=== PATIENT | male | born 1955 | race Caucasian/White ===

== ENCOUNTER 2023-07-22 06:33 | Outpatient (OUT) | payer MEDICARE, SELFPAY ==
[2023-07-22 07:14] LABS: Basophils Absolute Auto 0.1 10^3/uL (0.0-0.1); Basophils Percent Auto 1.5 % (0.2-2.0); Eosinophils Absolute Auto 0.3 10^3/uL (0.0-0.7); Eosinophils Percent Auto 4.8 % (0.9-7.0); Hematocrit 45.1 % (42.0-54.0); Hemoglobin 15.4 g/dL (14.0-18.0); Immature Granulocytes Abs Auto 0.01 10^3/uL (0.00-0.03); Immature Granulocytes Pct Auto 0.2 % (0.0-0.5); Lymphocytes Absolute Auto 2.4 10^3/uL (1.2-3.8); Lymphocytes Percent Auto 39.5 % (20.5-60.0); Mean Corpuscular HGB Conc 34.1 g/dL (29.9-35.2); Mean Corpuscular Volume 93.8 fL (80.0-94.0); Monocytes Absolute Auto 0.5 10^3/uL (0.3-0.8); Monocytes Percent Auto 8.4 % (1.7-12.0); Neutrophils Absolute Auto 2.7 10^3/uL (1.4-6.5); Neutrophils Percent Auto 45.6 % (43.0-75.0); Platelet Count 212 10^3/uL (150-450); Red Blood Count 4.81 10^6/uL (4.70-6.10); Red Cell Distribution Width 11.7 % (11.0-15.0)
[2023-07-22 08:29] LABS: Prostate Specific Antigen Scrn 1.46 ng/mL (<=4.00)
[2023-07-22 09:12] LABS: Alanine Aminotransferase 64 U/L (16-63); Anion Gap 10.5; BUN Creatinine Ratio 14.3; Calcium 9.4 mg/dL (8.5-10.1); Carbon Dioxide 29.7 mmol/L (21.0-32.0); Chloride 105 mmol/L (98-107); Chol HDL Ratio 3.1; Cholesterol 101 mg/dL (<=200); Estimated GFR (African America >60 (>=60); Estimated GFR (Non-African Ame >60 (>=60); Glucose 103 mg/dL (74-106); HDL Cholesterol 33 mg/dL (40-60); Potassium 4.2 mmol/L (3.5-5.1); Sodium 141 mmol/L (136-145); Triglycerides 63 mg/dL (<=150); VLDL CHOLESTEROL 12.6 mg/dL
== END 2023-07-22 06:34 | disposition home or self-care (01) ==
LOC: LAB 06:33
PROVIDERS: PCP Internal Medicine; Visit Provider Internal Medicine
DX: I25.10 Atherosclerotic heart disease of native coronary artery without angina pectoris (principal); E78.00 Pure hypercholesterolemia, unspecified; Z79.899 Other long term (current) drug therapy; Z12.5 Encounter for screening for malignant neoplasm of prostate
CPT/HCPCS: 36415; 80048; 80061; 84460; 85025; G0103

== ENCOUNTER 2023-08-24 14:30 | Outpatient (OUT) | payer MEDICARE, SELFPAY ==
--- NOTE | 2023-08-24 | ECG_ITS ---
The [facility] Test Date: 2023-08-24 Pat Name: DEMETRIUS NIELSON Department: Room: - Gender: Male [employer]ist: : [id number] Requested By: BUDDY BRUNSON Order Number: [id number] Reading MD: BUDDY BRUNSON Measurements Intervals [place] Rate: 82 P: 69 DC: 159 QRS: 53 QRSD: 88 T: 70 QT: 373 QTc: 436 Interpretive Statements SINUS RHYTHM No previous ECG available for comparison Electronically Signed On 08-25-2023 7:16:10 EST by BUDDY BRUNSON
--- NOTE | 2023-08-24 14:46 | XR_ITS ---
The [address] [address] Patient Name: DEMETRIUS NIELSON MRN: [id number] date: 1955 Sex: M Assigned Patient Location: LAB Current Patient Location: Accession/Order Number: [id number] Exam Date: 08/24/2023 14:50 Report Date: 08/25/2023 07:26 At the request of: BUDDY BRUNSON Procedure: XR chest 2V PROCEDURE: XR chest 2V DATE: 08/24/2023 1:50 PM [facility] COMPARISONS: None. CLINICAL INDICATION: 68 years Male Precordial Chest Pain R07.2 FINDINGS: The cardiomediastinal silhouette and pulmonary vasculature are within normal limits. Poststernotomy changes are identified. The lungs are clear. There is no evidence of pleural effusion or pneumothorax. XR/XR chest 2V IMPRESSION: Chest radiograph is essentially within normal limits. Poststernotomy changes are identified. Electronically authenticated by: MATILDE DOTY Date: 08/25/2023 07:26
[2023-08-24 15:09] LABS: Basophils Absolute Auto 0.1 10^3/uL (0.0-0.1); Basophils Percent Auto 1.6 % (0.2-2.0); Eosinophils Absolute Auto 0.1 10^3/uL (0.0-0.7); Eosinophils Percent Auto 1.4 % (0.9-7.0); Hematocrit 44.4 % (42.0-54.0); Hemoglobin 15.2 g/dL (14.0-18.0); Immature Granulocytes Abs Auto 0.01 10^3/uL (0.00-0.03); Immature Granulocytes Pct Auto 0.2 % (0.0-0.5); Lymphocytes Absolute Auto 1.8 10^3/uL (1.2-3.8); Mean Corpuscular HGB Conc 34.2 g/dL (29.9-35.2); Mean Corpuscular Hemoglobin 32.1 pg (25.9-34.0); Mean Corpuscular Volume 93.7 fL (80.0-94.0); Mean Platelet Volume 11.6 fL (9.5-13.5); Monocytes Absolute Auto 0.4 10^3/uL (0.3-0.8); Monocytes Percent Auto 7.1 % (1.7-12.0); Neutrophils Absolute Auto 3.4 10^3/uL (1.4-6.5); Neutrophils Percent Auto 58.7 % (43.0-75.0); Platelet Count 202 10^3/uL (150-450); Red Blood Count 4.74 10^6/uL (4.70-6.10); Red Cell Distribution Width 11.7 % (11.0-15.0); White Blood Count 5.7 10^3/uL (4.0-11.0)
[2023-08-24 15:30] LABS: BUN Creatinine Ratio 12.4; Carbon Dioxide 27.4 mmol/L (21.0-32.0); Chloride 107 mmol/L (98-107); Estimated GFR (African America >60 (>=60); Estimated GFR (Non-African Ame >60 (>=60); Glucose 103 mg/dL (74-106); Potassium 4.4 mmol/L (3.5-5.1); Sodium 144 mmol/L (136-145); Troponin I High Sensitivity 4.5 pg/mL (4.0-76.1)
== END 2023-08-24 14:31 | disposition home or self-care (01) ==
LOC: LAB 14:32
PROVIDERS: PCP Internal Medicine; Visit Provider Internal Medicine
DX: R07.2 Precordial pain (principal); I25.10 Atherosclerotic heart disease of native coronary artery without angina pectoris; R03.0 Elevated blood-pressure reading, without diagnosis of hypertension
CPT/HCPCS: 36415; 71046; 80048; 84484; 85025; 93005

== ENCOUNTER 2023-11-03 08:33 | Outpatient (OUT) | payer MEDICARE, SELFPAY ==
--- OUTSIDE RECORDS SUMMARY | 2023-11-03 08:38 | XMS_ITS | CCD ---
Author Name Unknown Address [address] [place] [address] Organization [facility] Team Providers Care Production Expediter Name Role Phone PHYSICIAN, DEFAULT Unavailable Unavailable PHYSICIAN, DEFAULT Unavailable Unavailable REQUEST, DR KP LISTED Admitting Unavaila ble REQUEST, DR GOODRICH LISTED Attending Unavaila ble BALL, DR GOODWIN Primary Care Unavailable REQUEST, DR GOODRICH LISTED Consulting Unavaila ble BALL, DR GOODWIN Admitting Unavailable BALL, DR GOODWIN Attending Unavailable BALL, DR GOODWIN Primary Care Unavailable BALL, DR GOODWIN Consulting Unavailable BALL, DR GOODWIN Admitting Unavailable BALL, DR GOODWIN Attending Unavailable BALL, DR GOODWIN Primary Care Unavailable Rojelio Adler Unavailable Arnel Buckley Unavailable Rojelio Adler DO Primary Care Provider NAOMIE DENNIS Attending Unavailable ROJELIO ADLER Referring Unavailable VITOR, ROJELIO Mayen Primary Care Unavailable JESSICA CUNHA Attending Unavailable JESSICA CUNHA Referring Unavailable VITOR, ROJELIO Mayen Primary Care Unavailable MARIVEL MUSTAFA Admitting Unavailable MORIAH SANTOS Attending Unavailable ROJELIO ADLER Primary Care Unavailable NAOMIE DENNIS Consulting Unavailable NESTOR OWENS Attending Unavailable NESTOR OWENS Referring Unavailable ROJELIO ADLER Primary Care Unavailable TYREE PRABHAKAR Attending Unavailable TYREE PRABHAKAR Referring Unavailable ROJELIO ADLER Primary Care Unavailable TYREE PRABHAKAR Attending Unavailable TYREE PRABHAKAR Referring Unavailable ROJELIO ADLER Primary Care Unavailable TYREE PRABHAKAR Attending Unavailable TYREE PRABHAKAR Referring Unavailable VITOR, ROJELIO E Primary Care Unavailable TYREE PRABHAKAR Attending Unavailable TYREE PRABHAKAR Referring Unavailable VITOR, ROJELIO E Primary Care Unavailable TYREE PRABHAKAR Attending Unavailable TYREE PRABHAKAR Referring Unavailable BALL, ROJELIO E Primary Care Unavailable MALASPATTIEM Attending Unavailable MALAS HAZEM Referring Unavailable VITOR, ROJELIO E Primary Care Unavailable Medications Current Medications Medication Drug Class(es) Dates Sig (Normalized) Sig (Original) acetaminophen 500 mg oral tablet (2 sources) take 2 tablets by mouth every six hours as needed for pain acetaminophen (TYLENOL) 500 mg tablet Take 2 tablets (1,000 mg total) by mouth every 6 (six) hours as needed for pain. 0 Active Aspir-81 (7 sources) Aspir-81 Active aspirin 81 mg delayed release oral tablet (2 sources) Platelet Aggregation Inhibitor, Nonsteroidal Anti-inflammatory Drug take 1 tablet by mouth in the morning aspirin 81 mg Take 1 tablet (81 mg total) by mouth in the morning. Patient just started 81 mg on 09/09/2017 was previously on 324 mg. 0 Active atorvastatin 40 mg oral tablet (9 sources) HMG-CoA Reductase Inhibitor Start: 02-11-2018 take 1 tablet by mouth once daily atorvastatin (LIPITOR) 40 mg tablet Take 1 tablet (40 mg total) by mouth daily. 90 tablet 3 02/11/2018 Active B12 5000 MCG (4 sources) B12 5000 MCG 2 tabelts Sublingual three times a week Active 24 hr isosorbide mononitrate 30 mg extended release oral tablet (4 sources) Nitrate Vasodilator Start: 09-15-2023 End: 10-09-2023 take 1 tablet by mouth once daily isosorbide mononitrate (IMDUR) 30 mg 24 hr tablet Take 1 tablet (30 mg total) by mouth daily. 90 tablet 3 10/09/2023 Active take 1 tablet by donal th every twelve hours Isosorbide Mononitrate 20 MG 1 tablet Or ally Twice a day Active 24 hr metoprolol succinate 50 mg extended release oral tablet (6 sources) beta-Adrenergic Ok Start: 09-15-2023 End: 10-09-2023 take 1 tablet by mouth every twenty-four hours in the morning metoprolol succinate XL (TOPROL XL) 50 mg 24 hr tablet Take 1 tablet (50 mg total) by mouth in the morning. 90 tablet 3 10/09/2023 Active take 1 tablet by mouth once joey y Metoprolol Succinate ER 50 MG 1 tablet Orally Once a day for 30 days Active take 1 tablet by donal th every twenty-four hours Metoprolol Succinate ER 25 MG 1 tablet Orally Once a day for 30 days Active nitroglycerin 0.4 mg sublingual tablet (5 sources) Nitrate Vasodilator Start: 08-24-2023 Nitroglyce rin 0.4 MG as directed Sublingual PRN chest pain for 30 days Jul, Active Start: 08-24-2023 nitroglycerin (NITROSTAT) 0.[address] 1 tablet (0.4 mg total) under the tongue every 5 (five) minutes as needed. 0 08/24/2023 Active predniSONE 20 mg oral tablet (1 source) Start: 10-26-2023 predniSONE 20 MG 1 tablet Orally bid w/ food x 3 days then qd w/ food x 3 days for 6 days Sep, Active vitamin b12 1 mg sublingual tablet (2 sources) Vitamin B12 take 1 tablet under the tongue three times weekly cyanocobalamin (VITAMIN B12) 1,000 mcg tablet, sublingual Place 1 tablet (1,000 mcg total) under the tongue 3 (three) times a week. 0 Active Problems Active Problems Problem Classification Problem Date Documented Da te Episodic/Chronic Coronary atherosclerosis and other heart disease (18 sources) Coronary arteriosclerosis; Translations: [Atherosclerotic heart disease of [place] coronary artery without angina pectoris] Onset: 09-09-2017 Chronic Disorders of lipid metabolism (11 sources) Hypercholesterolemia ; Translations: [Pure hypercholesterolemia , unspecified] Onset: 10-07-2017 Chronic Esophageal disorders (8 sources) Gastro-esophageal reflux disease with esophagitis; Translations: [Gastro-esophageal reflux disease with esophagitis, without bleeding] Chronic Essential hypertension (3 sources) Hypertensive disorder; Translations: [Essential (primary) hypertension] Onset: 09-24-2023 09-24-2023 Chronic Nonspecific chest pain (11 sources) Precordial pain; Translations: [Chest discomfort] Onset: 09-09-2017 Episodic Occlusion or stenosis of precerebral arteries (5 sources) Carotid atherosclerosis; Translations: [Occlusion and stenosis of unspecified carotid artery] Onset: 12-21-2018 09-24-2023 Chronic Osteoarthritis (2 sources) Osteoarthritis of joint of left shoulder region; Translations: [Primary osteoarthritis, left shoulder] Chronic Other aftercare (4 sources) Long-term current use of drug therapy; 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] Episodic Other aftercare (1 source) Other usp (current) drug therapy Episodic Other circulatory disease (1 source) Elevated blood-pressure reading, without diagnosis of hypertension Episodic Other injuries and conditions due to external causes (4 sources) History of fall; Translations: [History of falling] Episodic Other nutritional; endocrine; and metabolic disorders (4 sources) Overweight; Translations: [Overweight] Episodic Other skin disorders (11 sources) Folliculitis; Translations: [Follicular disorder, unspecified] Episodic Other skin disorders (1 source) Actinic keratosis Episodic Other upper respiratory infections (4 sources) Streptococcal sore throat; Translations: [Streptococcal pharyngitis] Episodic Spondylosis; intervertebral disc disorders; other back problems (2 sources) Cervical spondylosis; Translations: [Spondylosis without myelopathy or radiculopathy, cervical region] Chronic Thyroid disorders (2 sources) Thyroid nodule; Translations: [Nontoxic single thyroid nodule] Onset: 09-30-2017 09-30-2017 Chronic Unclassified (1 source) Med Refill Onset: 09-24-2023 Past or Other Problems Problem Classification Problem Date Documented Da te Episodic/Chronic Esophageal disorders (1 source) Esophageal disorders Lymphadenitis (2 sources) Lymphadenopathy; Translations: [Generalized enlarged lymph nodes] Onset: 09-30-2017 09-30-2017 Episodic Other lower respiratory disease (2 sources) Dyspnea; Translations: [Shortness of breath] Onset: 01-20-2018 01-20-2018 Episodic Other screening for suspected conditions (not mental disorders or infectious disease) (7 sources) Encounter for screening for malignant neoplasm of prostate; Translations: [Cardiovascular stress test abnormal] Onset: 09-09-2017 Episodic Residual codes; unclassified (2 sources) FH: premature coronary heart disease; Translations: [Family history of ischemic heart disease and other diseases of the circulatory system] Onset: 09-09-2017 09-09-2017 Episodic Results Test Name Value Interpretation Reference Range Facil ity Outside Recordson 09-18-2023 Outside Records [id number] #[id number] Normal [facility] Basic Metabolic Panelon 07-30 Anion gap [Moles/Vol] 14.0 mmol/L [facility] Other Calcium [Mass/Vol] 9.3801650 mg/dL Normal 8.5-10.1 mg/ dL [facility] Other Chloride [Moles/Vol] 107 mmol/L Normal 98-107 mmol/L [facility] Other CO2 [Moles/Vol] 27.33720489 mmol/L Normal 21.0-3 2.0 mmol/L [facility] Other Creatinine [Mass/Vol] 0.94207828 mg/dL Normal 0.70-1.30 mg/dL [facility] Other Glucose [Mass/Vol] 103 mg/dL Normal 74-106 mg/dL [facility] Other Potassium [Moles/Vol] 4.15714237 mmol/L Normal 3.5-5.1 mmol/L [facility] Other Sodium [Moles/Vol] 144 mmol/L Normal 136-145 mmol/L [facility] Other Urea nitrogen [Mass/Vol] 12.8050487 mg/dL Normal 7.0-18.0 mg/dL [facility] Other Urea nitrogen/Creatinin e [Mass ratio] 12.4 mg/mg [facility] Other Basic Metabolic Panel see note [facility] Other Basic Metabolic Panel >60 >=60 [facility] Other CBC AUTO DIFFon 07-11-2022 BASO # 0.1 103/ul Normal 0.0-0.1 [facility] Comment on above: Performed By: #### D ATCBC #### [facility] [address] [place] [address] Dr. Veronica Valderrama Basophils/100 WBC (Bld) 1.3 % Normal 0.2-2.0 [facility] Comment on above: Performed By: #### D ATCBC #### [facility] [address] [place] [address] Dr. Veronica Valderrama EO # 0.2 103/ul Normal 0.0-0.7 [facility] Comment on above: Performed By: #### D ATCBC #### [facility] [address] [place] [address] Dr. Veronica Valderrama Eosinophils/100 WBC (Bld) 3.8 % Normal 0.9-7.0 [facility] Comment on above: Performed By: #### D ATCBC #### [facility] [address] [place] [address] Dr. Veronica Valderrama Erythrocyte distribution width (RBC) [Ratio] 12.0 % Normal 11.0-15.0 [facility] Comment on above: Performed By: #### D ATCBC #### [facility] [address] [place] [address] Dr. Veronica Valderrama Hematocrit (Bld) [Volume fraction] 45.4 % Normal 42.0-54.0 [facility] Comment on above: Performed By: #### D ATCBC #### [facility] [address] [place] [address] Dr. Veronica Valderrama Hemoglobin (Bld) [Mass/Vol] 15.3 g/dL Normal 14.0-18.0 [facility] Comment on above: Performed By: #### D ATCBC #### [facility] [address] [place] [address] Dr. Veronica Valderrama IG # 0.01 10e3/ul Normal 0.00-0.03 [facility] Comment on above: Performed By: #### D ATCBC #### [facility] [address] [place] [address] Dr. Veronica Valderrama IG % 0.2 % Normal 0.0-0.5 [facility] Comment on above: Performed By: #### D ATCBC #### [facility] [address] [place] [address] Dr. Veronica Valderrama LYMPH # 2.4 103/ul Normal 1.2-3.8 [facility] Comment on above: Performed By: #### D ATCBC #### [facility] [address] [place] [address] Dr. Veronica Valderrama Lymphocytes/100 WBC (Bld) 38.0 % Normal 20.5-60.0 [facility] Comment on above: Performed By: #### D ATCBC #### [facility] [address] [address] [address] Veronica Valderrama MCH (RBC) [Entitic mass] 31.5 pg Normal 25.9-34.0 [facility] Comment on above: Performed By: #### D ATCBC #### [facility] [address] [place] [address] Dr. Veronica Valderrama MCHC (RBC) [Mass/Vol] 33.7 g/dL Normal 29.9-35.2 [facility] Comment on above: Performed By: #### D ATCBC #### [facility] [address] [place] [address] Dr. Veronica Valderrama MCV (RBC) [Entitic vol] 93.4 fL Normal 80.0-94.0 [facility] Comment on above: Performed By: #### D ATCBC #### [facility] [address] [place] [address] Dr. Veronica Valderrama MONO # 0.6 103/ul Normal 0.3-0.8 [facility] Comment on above: Performed By: #### D ATCBC #### [facility] [address] [place] [address] Dr. Veronica Valderrama Monocytes/100 WBC (Bld) 8.8 % Normal 1.7-12.0 [facility] Comment on above: Performed By: #### D ATCBC #### [facility] [address] [place] [address] Dr. Veronica Valderrama NEUT # 3.1 103/ul Normal 1.4-6.5 [facility] Comment on above: Performed By: #### D ATCBC #### [facility] [address] [place] [address] Dr. Veronica Valderrama Neutrophils/100 WBC (Bld) 47.9 % Normal 43.0-75.0 [facility] Comment on above: Performed By: #### D ATCBC #### [facility] [address] [place] [address] Dr. Veronica Valderrama Platelet mean volume (Bld) [Entitic vol] 11.6 fL Normal 9.5-13.5 [facility] Comment on above: Performed By: #### D ATCBC #### [facility] [address] [address] [address] Veronica Valderrama PLT 213 103/ul Normal 150-450 [facility] Comment on above: Performed By: #### D ATCBC #### [facility] [address] [address] [address] Veronica Valderrama RBC 4.86 106/ul Normal 4.70-6.10 [facility] Comment on above: Performed By: #### D ATCBC #### [facility] [address] [address] [address] Veronica Valderrama WBC 6.4 103/ul Normal 4.0-11.0 [facility] Comment on above: Performed By: #### D ATCBC #### [facility] [address] [place] [address] Dr. Veronica Valderrama YANIV- BMP WITH LIPIDon 2021 Anion gap [Moles/Vol] 9.2 mmol/L Normal [facility] Comment on above: Performed By: #### D ATBMP #### [facility] [address] [place] [address] Dr. Veronica Valderrama Calcium [Mass/Vol] 9.2 mg/dL Normal 8.5-10.1 [facility] Comment on above: Performed By: #### D ATBMP #### [facility] [address] [place] [address] Dr. Veronica Valderrama Chloride [Moles/Vol] 107 mmol/L Normal 98-107 [facility] Comment on above: Performed By: #### D ATBMP #### [facility] [address] [place] [address] Dr. Veronica Valderrama Cholesterol [Mass/Vol] 110 mg/dL Normal <=200 [facility] Comment on above: Performed By: #### D ATBMP #### [facility] [address] [place] [address] Dr. Veronica Valderrama Cholesterol in HDL [Mass/Vol] 40 mg/dL Normal 40-60 [facility] Comment on above: Performed By: #### D ATBMP #### [facility] [address] [address] [address] Veronica Valderrama Cholesterol in LDL [Mass/Vol] 50.8 mg/dL Normal [facility] Comment on above: Performed By: #### D ATBMP #### [facility] [address] [address] [address] Veronica Valderrama CO2 [Moles/Vol] 29.5 mmol/L Normal 21.0-32.0 [facility] Comment on above: Performed By: #### D ATBMP #### [facility] [address] [address] [address] Veronica Valderrama Creatinine [Mass/Vol] 0.89 mg/dL Normal 0.70-1.30 [facility] Comment on above: Performed By: #### D ATBMP #### [facility] [address] [address] [address] Veronica Valderrama EGFR-AF [place] >60 Normal >=60 [facility] Comment on above: Performed By: #### D ATBMP #### [facility] [address] [address] [address] Veronica Valderrama EGFR-NON AF [place] >60 Normal >=60 [facility] Comment on above: Performed By: #### D ATBMP #### [facility] [address] [address] [address] Veronica Valderrama Glucose [Mass/Vol] 102 mg/dL Normal 74-106 [facility] Comment on above: Performed By: #### D ATBMP #### [facility] [address] [address] [address] Veronica Valderrama HDL NORMAL > or = 60 mg/dl - LOW CARDIOVASCULAR RISK <40 mg/dl - HIGH CARDIOVASCULAR RISK Normal [facility] Comment on above: Performed By: #### D ATBMP #### [facility] [address] [address] [address] Veronica Valderrama LDL CALC NORMAL SEE BELOW Normal [facility] Comment on above: Result Comment: <100 mg/dl OPTIMAL 100 - 129 mg/dl NEAR OR ABOVE OPTIMAL 130 - 159 mg/dl BORDERLINE HIGH 160 - 189 mg/dl HIGH >190 mg/dl VERY HIGH Performed By: #### D ATBMP #### [facility] [address] [address] [address] Veronica Valderrama Potassium [Moles/Vol] 3.7 mmol/L Normal 3.5-5.1 [facility] Comment on above: Performed By: #### D ATBMP #### [facility] [address] [address] [address] Veronica Valderrama Sodium [Moles/Vol] 142 mmol/L Normal 136-145 [facility] Comment on above: Performed By: #### D ATBMP #### [facility] [address] [address] [address] Veronica Valderrama Triglyceride [Mass/Vol] 96 mg/dL Normal <=150 [facility] Comment on above: Performed By: #### D ATBMP #### [facility] [address] [address] [address] Veronica Valderrama Urea nitrogen [Mass/Vol] 9.0 mg/dL Normal 7.0-18.0 [facility] Comment on above: Performed By: #### D ATBMP #### [facility] [address] [address] [address] Veronica Valderrama Urea nitrogen/Creatinin e [Mass ratio] 10.1 mg/mg Normal [facility] Comment on above: Performed By: #### D ATBMP #### [facility] [address] [address] [address] Veronica Valderrama VLDL CALC 19.2 mg/dL Normal [facility] Comment on above: Performed By: #### D ATBMP #### [facility] [address] [address] [address] Veronica Valderrama Physician Orderon 09-18-2020 Physician Order [id number] 0#1.00CD:127 Normal [facility] Coding Summary.on 09-17-2020 Coding Summary. CODING DATE: 09/17/2020 FINAL [facility] STATUS: Home (Routine DC) PAYOR: [facility] [place] ADMIT DX: REASON FOR VISIT DX: Z00.00 Encounter for general adult medical examination without abnormal findings FINAL DX: PRINCIPAL: Z00.00 Encounter for general adult medical examination without abnormal findings SECONDARY: PYMT PROC APC STAT DESCRIPTION DOCTOR NAME DATE NOTE: The code number assigned matches the documented diagnosis and / or procedure in the patient's chart. However, the narrative phrase printed from the coding software may appear abbreviated, or result in slightly different terminology. Coded By: Quiana Kiser Date Saved: 09/17/2020 09:24 am Normal [facility] Coding Summary. CODING DATE: 09/01/2020 FINAL [facility] STATUS: Home (Routine DC) PAYOR: [facility] [place] ADMIT DX: REASON FOR VISIT DX: E78.5 Hyperlipidemia, unspecified FINAL DX: PRINCIPAL: E78.5 Hyperlipidemia, unspecified SECONDARY: PYMT PROC APC STAT DESCRIPTION DOCTOR NAME DATE NOTE: The code number assigned matches the documented diagnosis and / or procedure in the patient's chart. However, the narrative phrase printed from the coding software may appear abbreviated, or result in slightly different terminology. Coded By: Magalys Watson Date Saved: 09/01/2020 07:59 am Normal [facility] Caesar 08-17-2020 ALT No additional P-5'-P [Catalytic activity/Vol] 23 Int._Unit/L Normal 6-46 [facility] Comment on above: Performed By: #### 2 [id number], [id number], [id number] #### [facility] [address] [place] [address] Massiel 08-17-2020 AST [Catalytic activity/Vol] 21 Int._Unit/L Normal 5-43 [facility] Comment on above: Performed By: #### 2 [id number], [id number], [id number] #### [facility] [address] [place] [address] Consent for Treatmenton 07-30 Consent for Treatment [id number] #1.00CD:127 Normal [facility] Lipid Panelon 08-17-2020 Cholesterol [Mass/Vol] 100 mg/dL Low 120-200 [facility] Comment on above: Performed By: #### 2 [id number], [id number], [id number] #### [facility] [address] [place] [address] Cholesterol in HDL [Mass/Vol] 33 mg/dL [facility] Comment on above: Result Comment: HDL > or equal to 60 mg/dL: Low cardiovascular risk HDL < 40 mg/dL : High cardiovascular risk Performed By: #### 2 [id number], [id number], [id number] #### [facility] [address] [place] [address] Cholesterol in LDL [Mass/Vol] 51 mg/dL Normal <=129 [facility] Comment on above: Performed By: #### 2 [id number], [id number], [id number] #### [facility] [address] [place] [address] Cholesterol in VLDL [Mass/Vol] 18 mg/dL Normal 7-40 [facility] Comment on above: Performed By: #### 2 [id number], [id number], [id number] #### [facility] [address] [place] [address] Triglyceride [Mass/Vol] 92 mg/dL Normal <=149 [facility] Comment on above: Performed By: #### 2 [id number], [id number], [id number] #### [facility] [address] [place] [address] Physician Orderon 08-17-2020 Physician Order [id number] 9#1.00CD:127 Normal [facility] Vital Signs Date Time Vital Sign Value Performing Clinician Facility 10-26-2023 11:30-0500 Body height 182.88 cm Rojelio Adler Other [facility] Other 10-26-2023 11:30-0500 Body mass index (BMI) [Ratio] 25.06 kg/m2 Rojelio Adler Other [facility] Other 10-26-2023 11:30-0500 Body weight 83.83 kg Rojelio Adler Other [facility] Other 10-26-2023 11:30-0500 Diastolic blood pressure 99 mm[Hg] Rojelio Ball Other [facility] Other 10-26-2023 11:30-0500 Respiratory rate 12 /min Rojelio Ball Other [facility] Other 10-26-2023 11:30-0500 Systolic blood pressure 154 mm[Hg] Rojelio Ball Other [facility] Other 09-24-2023 07:53-0500 Body height 182.9 cm Naomie Dennis MD Work Phone: [employer] 09-24-2023 07:53-0500 Body mass index (BMI) [Ratio] 25.33 kg/m2 Naomie Dennis MD Work Phone: [employer] 09-24-2023 07:53-0500 Body weight 84.73 kg Naomie Dennis MD Work Phone: [employer] 09-24-2023 07:53-0500 Diastolic blood pressure 70 mm[Hg] Naomie Denins MD Work Phone: [employer] 09-24-2023 07:53-0500 Heart rate 79 /min Naomie Dennis MD Work Phone: [employer] 09-24-2023 07:53-0500 SaO2% (BldA) [Mass fraction] 98 % Naomie Dennis MD Work Phone: [employer] 09-24-2023 07:53-0500 Systolic blood pressure 112 mm[Hg] Naomie Dennis MD Work Phone: [employer] 08-24-2023 13:30-0500 Body height 182.88 cm Rojelio Ball Other [facility] Other 08-24-2023 13:30-0500 Body mass index (BMI) [Ratio] 25.2 kg/m2 Rojelio Ball Other [facility] Other 08-24-2023 13:30-0500 Body weight 84.28 kg Rojelio Ball Other [facility] Other 08-24-2023 13:30-0500 Diastolic blood pressure 91 mm[Hg] Rojelio Ball Other [facility] Other 08-24-2023 13:30-0500 Respiratory rate 12 /min Rojelio Ball Other [facility] Other 08-24-2023 13:30-0500 Systolic blood pressure 156 mm[Hg] Rojelio Ball Other [facility] Other 07-21-2023 11:00-0400 Body height 182.88 cm Rojelio Ball Other [facility] Other 07-21-2023 11:00-0400 Body mass index (BMI) [Ratio] 25.01 kg/m2 Rojelio Ball Other [facility] Other 07-21-2023 11:00-0400 Body weight 83.64 kg Rojelio Ball Other [facility] Other 07-21-2023 11:00-0400 Diastolic blood pressure 74 mm[Hg] Rojelio Ball Other [facility] Other 07-21-2023 11:00-0400 Respiratory rate 12 /min Rojelio Ball Other [facility] Other 07-21-2023 11:00-0400 Systolic blood pressure 128 mm[Hg] Rojelio Ball Other [facility] Other 01-07-2023 14:30-0400 Body height 182.88 cm Rojelio Adler Other [facility] Other 01-07-2023 14:30-0400 Body mass index (BMI) [Ratio] 25.63 kg/m2 Rojelio Adler Other [facility] Other 01-07-2023 14:30-0400 Body weight 85.73 kg Rojelio Adler Other [facility] Other 01-07-2023 14:30-0400 Diastolic blood pressure 80 mm[Hg] Rojelio Adler Other [facility] Other 01-07-2023 14:30-0400 Systolic blood pressure 150 mm[Hg] Rojelio R&V Other [facility] Other Encounters Encounter Date Encounter Type Care Provider Facility Start: 10-26-2023 End: 10-26-2023 ambulatory Rojelio Adler Other [facility] Other Start: 10-26-2023 Office outpatient vi sit 15 minutes Rojelio Adler [facility] Start: 10-09-2023 Refill Yuko Riggs RN [facility] Comment on above: Med Refill Start: 09-30-2023 End: 10-29-2023 ambulatory [facility] Start: 09-24-2023 End: 09-24-2023 ambulatory [facility] Start: 09-24-2023 End: 09-24-2023 Office outpatient visit 15 minutes Naomie Dennis MD Work Phone: [facility] Comment on above: Chest discomfort (Pr imary Dx); Hx of CABG; Hypertension, unspecified type; Carotid atherosclerosis, unspecified laterality Start: 09-22-2023 End: 09-28-2023 ambulatory [facility] Start: 09-14-2023 End: 09-15-2023 ambulatory TYREE PRABHAKAR [facility] Start: 09-14-2023 End: 09-15-2023 ambulatory TYREE PRABHAKAR [facility] Start: 09-13-2023 End: 09-15-2023 Emergency department patient visit NESTOR OWENS [facility] Start: 09-13-2023 End: 09-14-2023 ambulatory MARIVEL MUSTAFA [facility] Start: 08-24-2023 End: 08-24-2023 ambulatory Rojelio Adler Other [facility] Other Start: 08-24-2023 Office outpatient vi sit 15 minutes Rojelio Adler [facility] Start: 08-24-2023 Telephone encounter Rojelio Adler [facility] Start: 07-21-2023 End: 07-21-2023 ambulatory Rojelio Adler Other [facility] Other Start: 07-21-2023 Patient encounter procedure Rojelio Adler [facility] Start: 01-08-2023 End: 01-08-2023 ambulatory Arnel Buckley Other [facility] Other Start: 01-08-2023 Encounter by kathy Buckley [facility] Start: 01-07-2023 End: 01-07-2023 ambulatory Rojelio Adler Other [facility] Other Start: 01-07-2023 Patient encounter procedure Rojelio Adler [facility] Start: 09-25-2022 Adult health examination Rojelio Adler Other [facility] Other Start: 07-17-2022 End: 07-18-[address] ROJELIO ADLER Facility:[facility] Start: 07-11-2022 End: 07-12-2022 ambulatory NONE LISTED REQUEST Facility:[facility] Start: 09-23-2017 End: 09-24-2017 Ambulatory DEFAULT PHYSICIAN Facility:[facility] Procedures Date Procedure Procedure Detail Performing Clinician Start: 09-24-2023 Follow-up visit Follow-up BITA DENNIS Start: 07-17-[address] KP Brown ISTED REQUEST Comment on above: Performed By: #### P [facility] #### [facility] [address] [address] [address] Veronica Valderrama Start: 10-07-2017 History of coronary artery bypass grafting Hx of CABG Naomie Dennis MD Work Phone: Depression screening Maikel Adler Other History of coronary artery bypass grafting Hx of CABG Naomie Dennis MD Work Phone: Screening for malign ant neoplasm of prostate Rojelio Adler Other Plan of Treatment Date Care Activity Detail Author Start: 09-24-2024 Adult BMI Screening Adult BMI Screening [facility] Start: 09-24-2024 Tobacco Screening Tobacco Screening [facility] Start: 11-19-2023 End: 11-19-2023 Patient encounter procedure 11/19/2023 8:30 AM EST Office Visit [facility] [address] [place] [address] Noam Soria MD [address] [place] [address] [facility] Start: 2022 Fall Risk Screening Fall Risk Screening [facility] Start: 2007 Administration of varicella zoster vaccine Zoster (Shingles) Vaccine (1 of 2) [facility] Start: 1976 DTaP,Tdap and Td Vaccines (1 - Tdap) DTaP,Tdap and Td Vaccines (1 - Tdap) [facility] Start: 1975 Adult BMI Follow Up Plan Adult BMI Follow Up Plan [facility] Start: 1969 Depression Screening Depression Screening [facility] Start: 1957 Medicare Annual Wellness Visit Medicare Annual Wellness Visit [facility] Immunizations Immunization Date Immunization Notes Care Provider Fa cility 11-30-2020 COVID-19 Vaccine Pfi zer - Documentation Purposes Only Rojelio Adler Other [facility] Other 11-09-2020 COVID-19 Vaccine Pfi zer - Documentation Purposes Only Rojelio Adler Other [facility] Other Payers Date Payer Category Payer Medicare ANTHEM MEDICARE ANTHEM MEDICARE ADVANTAGE [id number] 2022[facility] [phone] [address] [place] [address] [id number] 1959 Self-pay 1959 Unknown [id number] 1957 Unknown [id number] 2.16.840.1.396610.3.579.2.593 1957 Unknown [id number] 2.16.840.1.926100.3.579.2.593 1957 Unknown [id number] 2.16.840.1.194187.3.579.2.128 6 1957 Unknown [id number] 2.16.840.1.435166.3.579.2.128 6 1957 Unknown [id number] 2.16.840.1.432944.3.579.2.128 6 1957 Unknown [id number] 2.16.840.1.116196.3.579.2.128 6 1957 Unknown [id number] 2.16.840.1.612010.3.579.2.128 6 1957 Unknown [id number] 2.16.840.1.524243.3.579.2.128 6 1957 Unknown [id number] 2.16.840.1.071252.3.579.2.128 6 1957 Unknown [id number] 2.16.840.1.352197.3.579.2.128 6 1957 Unknown [id number] 2.16.840.1.431497.3.579.2.128 6 1957 Unknown [id number] 2.16.840.1.190542.3.579.2.128 6 1957 Unknown [id number] 2.16.840.1.252563.3.579.2.128 6 1957 Unknown [id number] 2.16.840.1.136197.3.579.2.128 6 1957 Unknown [id number] 2.16.840.1.016441.3.579.2.128 6 1957 Unknown [id number] 2.16.840.1.421986.3.579.2.128 6 1957 Unknown [id number] 2.16.840.1.930827.3.579.2.128 6 1957 Unknown [id number] 2.16.840.1.196941.3.579.2.128 6 1957 Unknown [id number] 2.16.840.1.065509.3.579.2.128 6 1957 Unknown [id number] 2.16.840.1.010717.3.579.2.128 6 1957 Unknown [id number] 2.16.840.1.438862.3.579.2.128 6 1957 Unknown [id number] 2.16.840.1.588526.3.579.2.128 6 1957 Unknown [id number] 2.16.840.1.628635.3.579.2.128 6 1957 Unknown [id number] 2.16.840.1.101322.3.579.2.128 6 Unknown Unknown [id number] 2.16.840.1.271370.3.579.2.593 Social History Date Type Detail Facility Unknown if ever smoked [facility] Other Start: 11-08-2020 End: 09-24-2023 Sex Assigned At [facility] Other Start: 09-07-2023 Tobacco smoking stat us NYIS Never smoked tobacco [facility] Start: 09-07-2023 Tobacco use and exposure Smokeless tobacco non-user [facility] Start: 09-24-2023 Alcohol intake Ex-drinker (finding) [facility] Start: 11-08-2020 End: 09-24-2023 Alcohol intake [facility] tem Housing Instability Unknown [facility] Start: 07-19-2019 Alcohol Comment rarely [facility] Start: 1955 Sex Assigned At Not on file P [facility] Goals Date Patient Goal Desired Activity /State Personal health goal Comment on above: Formatting of this n ote might be different from the original. Evaluation of progress towards goal: In progress: Return home Evaluation note 10-26-2023 Note Date & Type Note Facility 10-26-2023 Evaluation note Encounter Date Diagnosis Assessment Notes Sep, Cervical spondylosis (ICD-10 - M47.812) ROM exercises, continue soft cervical collar, heat/ice and Tylenol. XR if no improvement PT and Orthopedic referral to be considered Sep, Primary osteoarthritis of left shoulder (ICD-10 - M19.012) ROM exercises, heat/ice and Tylenol. XR if no improvement PT and referral to Orthopedic surgery. Sep, ASHD (arteriosclerotic heart disease) (ICD-10 - I25.10) Echo: 08/2023 - LVEF 60% no valvular disease Stress test 08/2023 - no reversible defects This patient is stable without activity related CP, dyspnea or lightheadednes s. They are instructed to continue exercise and AHA diet plan. Continue secondary prevention measures. [facility] Other History of Present illness Narrative 09-24-2023 Naomie Dennis MD - 09/24/2023 8:15 AM EST Note Date & Type Note Facility 09-24-2023 History of Present illness Narrative Keith Whittaker Date of visit: 09/24/2023 Date of : 1955 Age: 68 y.o. Patient Active Problem List Diagnosis Chest pain in adult Abnormal stress test Family history of early CAD Unstable angina (CMS-HCC) Lymphadenopathy Thyroid nodule Coronary artery disease involving sokaogon coronary artery of sokaogon heart without angina pectoris Hx of CABG Other hyperlipidemia Shortness of breath Carotid stenosis, bilateral Chest pain, unspecified type Chest discomfort Hypertension Carotid atherosclerosis No Known Allergies Current Outpatient Medications Medication Sig Dispense Refill acetaminophen (TYLENOL) 500 mg tablet Take 2 tablets (1,000 mg total) by mouth every 6 (six) hours as needed for pain. aspirin 81 mg Take 1 tablet (81 mg total) by mouth in the morning. Patient just started 81 mg on 09/09/2017 was previously on 324 mg. atorvastatin (LIPITOR) 40 mg tablet Take 1 tablet (40 mg total) by mouth daily. 90 tablet 3 cyanocobalamin (VITAMIN B12) 1,000 mcg tablet, sublingual Place 1 tablet (1,000 mcg total) under the tongue 3 (three) times a week. isosorbide mononitrate (IMDUR) 30 mg 24 hr tablet Take 1 tablet (30 mg total) by mouth daily. 30 tablet 1 metoprolol succinate XL (TOPROL XL) 50 mg 24 hr tablet Take 1 tablet (50 mg total) by mouth in the morning. 30 tablet 0 nitroglycerin (NITROSTAT) 0.[address] 1 tablet (0.4 mg total) under the tongue every 5 (five) minutes as needed. No current facility-administered medications for this visit. Chief Complaint Patient presents with Follow-up EST PT IP NI 2-3 WEEK FU SCHED W/PT Med Refill All cardiac meds History of Present Illness Patient with history of CABG x4, hypertension, hyperlipidemia, mild carotid disease, anxiety disorder. Here for routine follow-up visit. Was seen by my partner in [facility] on 09/14/2023 complaining of atypical type chest pain. EKG was negative and troponin was negative. Patient is sent home with plan for stress testing in the outpatient setting. Patient stated that he has on and off left-sided chest pain. Nitro if it is related to his neck pain problems that causes shooting pain down his left arm, and sometimes left shoulder pain. Stated that the pain sometimes occur with repetitive movement of his arm, mainly the left arm, usually last for couple of minutes, not associated with nausea or sweats or shortness of breath. Denied tenderness on palpation. Denied palpitations or dizziness orthopnea or edema. No tobacco use. Stated that he has tried taking sublingual nitro for the chest pain, x2 consecutive pills although did not help relieve the pain. Past Medical History: Diagnosis Date Anxiety PONV (postoperative nausea and vomiting) Shortness of breath No data recorded No data recorded No data recorded Past Surgical History: Procedure Laterality Date CABG X4/EVH FROM LEFT UPPER&LOWETR LEG/OLSEN/LYNETTE N/A 09/14/2017 Performed by Zion Gonzalez MD at [facility] CHOLECYSTECTOMY 07/2018 Coronary angiogram and left ventricular gram/pressure N/A 09/10/2017 Performed by Tony Sahu MD at [facility] CARDIAC CATH LABS NECK SURGERY x2, C4-5 and C5-6; Fusion TRANSPOSITION NERVE ULNAR Left 08/12/2017 Performed by Emile Kaur DO at [facility] Family History Problem Relation Age of Onset Heart disease Mother Hypertension Mother Thyroid Issues Mother Alzheimer's disease Father Heart disease Father Social History Socioeconomic History Marital status: Spouse name: Not on file Number of children: Not on file Years of education: Not on file Highest education level: Not on file Occupational History Not on file Tobacco Use Smoking status: Never Smokeless tobacco: Never Vaping Use Vaping Use: Never used Substance and Sexual Activity Alcohol use: Not Currently Alcohol/week: 2.0 standard drinks of alcohol Types: 2 Cans of beer per week Comment: rarely Drug use: No Sexual activity: Yes Partners: Female Other Topics Concern Caffeine Use No Social History Narrative Not on file Social Determinants of Health Financial Resource Strain: Not on file Food Insecurity: No Food Insecurity (09/24/2023) Hunger Screening Food Insecurity - Worry: Never True Food Insecurity - Inability: Never True Transportation Needs: Not on file Physical Activity: Not on file Stress: Not on file Social Connections: Not on file Interpersonal Safety: Not on file Review of Systems Review of Systems Constitutional: Negative for chills, fever and malaise/fatigue. HENT: Negative for hearing loss and nosebleeds. Eyes: Negative for blurred vision. Respiratory: Negative for cough, shortness of breath, sputum production and wheezing. Hematologic/Lymphatic: Negative for bleeding problem. Skin: Negative for rash and suspicious lesions. Musculoskeletal: Positive for arthritis, back pain and joint pain. Negative for myalgias. Gastrointestinal: Negative for abdominal pain, change in bowel habit, hematochezia, melena, nausea and vomiting. Genitourinary: Negative for dysuria and hematuria. Neurological: Negative for dizziness, focal weakness, headaches and paresthesias. CARDIOVASCULAR: Please review HPI. Physical Examination General appearance: Alert, oriented and cooperative. In no acute distress. Skin: Warm and dry to touch. Head: Normocephalic, without obvious abnormality, atraumatic. Ears, Nose, Mouth, Throat: Throat clear without erythema or exudate. Dentition intact. Eyes: Conjunctivae unremarkable, EOM intact. Neck: No JVD, No carotid bruit. Neck supple, trachea midline. Respiratory: Clear to auscultation bilaterally, no use of accessory muscles. Cardiovascular: RRR with normal S1 and S2 with no murmurs. Gastrointestinal: Soft, non-tender. Bowel sounds normal. Musculoskeletal: No peripheral edema. Neurologic: Oriented to time, person and place, affect appropriate. No focal/major motor defects noted. Psychiatric: Appropriate mood, memory and judgement. VITAL SIGNS: BP 112/70 (BP Site: Left Arm, BP Postition: Sitting) Pulse 79 Ht 182.9 cm (6') Wt 84.7 kg (186 lb 12.8 oz) SpO2 98% BMI 25.33 kg/m No orders of the defined types were placed in this encounter. There are no discontinued medications. IMPRESSIONS/PLAN 1. Chest discomfort 2. Hx of CABG 3. Hypertension, unspecified type 4. Carotid atherosclerosis, unspecified laterality Previous cardiac related labs and test results were reviewed and discussed with the patient. Mixed atypical/musculoskeletal type type chest pain Multivessel CAD s/p CABG x4 in 2017 Normal LVEF TTE 09/14/2023 Hypertension Hx of hyperlipidemia - 06/2023: Total cholesterol 101, HDL 33, LDL 56, triglycerides 63 Mild bilateral carotid disease on duplex 2017 Anxiety disorder Patient here for follow-up visit. Has been having recurrent atypical/musculoskeletal saw him mixed chest discomfort. Dealing with neck pain problems with radiculopathy. Pain is positional with movement of left arm. I did not order any testing today. Recommended patient continue with p.r.n. Tylenol for pain control. Will have follow-up in 6-12 weeks or sooner if needed. Patient has p.r.n. sublingual nitro with him and knows how to use it. No changes in medications today. Patient to call us with any cardiac questions or concerns. TODAYS ORDERS No orders of the defined types were placed in this encounter. FOLLOW UP Return in about 6 weeks (around 11/05/2023). PCP: ROJELIO ADLER DO Referring Physician: Rojelio Adler DO [address] [place] [id number] documented in this encounter [facility] Evaluation note 08-24-2023 Note Date & Type Note Facility 08-24-2023 Evaluation note Encounter Date Diagnosis Assessment Notes Jul, Precordial chest pain (ICD-10 - R07.2) Instructed to report to ER for evaluation for persistent CP, dyspnea or lightheadedness. Begin evaluation w/ EKG, Troponin/CBC/BMP. Restart Metoprolol and have SL NTG on hand. Referral to re-establish care with his [facility]. Stress testing, Echocardiogram will likely scheduled by [facility]. Jul, ASHD (arteriosclerot ic heart disease) (ICD-10 - I25.10) This patient is stable but experiencing atypical CP. He denies dyspnea, palpitations or lightheadedness. He was instructed to continue with AHA diet plan. Continue secondary prevention measures w/ ASA and Statin. Restart Metoprolol 25mg qd. SL NTG on hand. Jul, Elevated cholesterol (ICD-10 - E78.00) Instructed on diet and exercise with continued statin therapy.Discussed the beneficial effects of lowering cholesterol in reducing the risk for cerebrovascular and cardiovascular disease. Jul, Elevated BP without diagnosis of hypertension (ICD-10 - R03.0) Restart Metoprolol. May be due to anxiety and stress over presenting symptoms. Patient is instructed on home BP measurements: - rest for 5 minutes w/o talking- positioned w/ feet on floor and arm supported- average best 2/3 readings w/ goal < 135/85 [facility] Other Evaluation note 07-21-2023 Note Date & Type Note Facility 07-21-2023 Evaluation note Encounter Date Diagnosis Assessment Notes Jun, Medicare annual wellness visit, initial (ICD-10 - Z00.00) Personalized health advice was given to the beneficiary including a written plan for screenings discussed and provided. Advanced care planning reviewed and/or information given as requested. Additional counseling was provided here today in regards to, [ ]. The above visit was performed by [ ] under direct supervision of [ ]. Document reviewed and amended by provider signed below. Jun, ASHD (arteriosclerotic heart disease) (ICD-10 - I25.10) This patient is stable without activity related CP, dyspnea or lightheadedness. They are instructed to continue exercise and AHA diet plan. Continue secondary prevention measures. Jun, Elevated cholesterol (ICD-10 - E78.00) Instructed on diet and exercise with continued statin therapy.Discussed the beneficial effects of lowering cholesterol in reducing the risk for cerebrovascular and cardiovascular disease. Jun, Gastroesophageal reflux disease with esophagitis without hemorrhage (ICD-10 - K21.00) Diet instructions: Smaller portions, avoid eating and laying flat, avoid eating or drinking prior to bedtime. Weight loss. Jun, Screening PSA (prostate specific antigen) (ICD-10 - Z12.5) Yearly ALFRED and PSA Jun, High risk medication use (ICD-10 - Z79.899) Check labs: CBC, ALT [facility] Other Evaluation note 01-07-2023 Note Date & Type Note Facility 01-07-2023 Evaluation note Encounter Date Diagnosis Assessment Notes Dec, Actinic keratosis (ICD-10 - L57.0) f/u Dermatology Use sun screen. [facility] Other Evaluation note Note Date & Type Note Facility Evaluation note No Information [employer] Other Evaluation note Note Date & Type Note Facility Evaluation note Diagnosis Chest discomfort- Primary Other chest pain Hx of CABG Postsurgical aortocoronary bypass status Hypertension, unspecified type Carotid atherosclerosis, unspecified laterality documented in this encounter [facility] History general Narrative - Reported Note Date & Type Note Facility History general Narrative - Reported Type Medical History ASHD (arteriosclerotic heart dis ease) Medical History Folliculitis Medical History Hypercholesterolemia Surgical History CHOLECYSTECTOMY 2018 Surgical History AORTO-CORONARY BYPASS GRAFT 201 7 Surgical History TRANSPOSITION, ULNAR NERVE AT E LBOW 2016 Surgical History COLONOSCOPY Surgical History LUMBAR DISCECTOMY Hospitalization History SEE SURGICAL HX [facility] Other Instructions Note Date & Type Note Facility Instructions Not on filedocumented in this en counter [facility] Instructions Note Date & Type Note Facility Instructions Not on filedocumented in this en counter [facility] Summary Purpose Family History No Family History Records FoundNo Family History Records FoundNo Family History Records FoundNo Family History Records FoundNo Family History Records Found Advance Directives No Advanced Directives Records FoundDocuments on File Type Date Recorded Patient Stable Hand Expl anation Living Will 08/24/2023 10:06 AM Keith Whittaker Signed Living Will 05-19-2023 for Upload.pdf Advance Directive 08/24/2023 9:56 AM Ashley Whittaker Signed Healthcare Directive 05-19-2023 for Upload.pdf Advance Directive 08/23/2023 10:50 AM Mat Whittaker Advance Healthcare Directive + Living Will 05-17-2023.pdf Advance Directive 08/23/2023 9:29 AM Jarred Whittaker Advance Healthcare Directive + Living Will 05-17-2023.pdf Latest Code Status on File Code Status Date Activated Date Inactivated Comments Full Code 09/13/2023 1:44 PM 09/14/2023 5:19 PM Code Status History Code Status Date Activated Date Inactivated Comments Full Code 09/14/2017 11:03 AM 09/17/2017 4:36 PM Healthcare Agents on File Name Relationship Healthcare Agent Relationshi p Communication Ashley Whittaker Spouse Health Care Agent [email or web address] Healthcare Agents on File Name Relationship Healthcare Agent Relationshi p Communication Ashley Whittaker Spouse Health Care Agent [email or web address] Reason for Referral Reason Mr. Whittaker is being r eferred for atypical chest pain. Diagnosis 1 Precordial chest jordana n (R07.2) Diagnosis 2 ASHD (arteriosclerot ic heart disease) (I25.10) Diagnosis 3 Elevated cholesterol (E78.00) Referral Organization [facility] Referring Provider First Name Rojelio Referring Provider Last Name Vitor Referring Provider Specialty Internal Me dicine Referred Organization Unknown Facility Referred Provider Wesley Lal Referred Provider Specialty Cardiovascul ar Disease Referral Priority Routine General Notes Mr. Whittaker has known CAD with CABG x 4 completed in 2017. He recently presented with new onset chest pain. He states it has been present for about a week and at times unnoticeable and at other times severe, sharp in quality. He continues to walk daily without escalation of his symptoms. There is no specific provoking activity. Although his pain can not be reproduced with palpation, it may be musculoskeletal in origin. He is being referred to re-establish care with his [facility] and for an opinion on further testing recommendations. Clinical Notes Send EKG Requesting earliest appt in [place] or Additional Source Comments (unrecognized sect ion and content) No Status Records FoundNo Status Records FoundNo Status Records FoundNo Status Records FoundNo Status Records Found INFORMATION SOURCE (unrecogn ized section and content) DATE CREATED AUTHOR 03/23/2018 [facility] DATE CREATED AUTHOR AUTHOR'S ORGANIZ ATION 09/19/2020 Ricky Miranda [facility] DATE CREATED AUTHOR AUTHOR'S ORGANIZ ATION 07/21/2022 [facility] DATE CREATED AUTHOR AUTHOR'S ORGANIZ ATION 09/19/2023 [facility] DATE CREATED AUTHOR AUTHOR'S ORGANIZ ATION 11/01/2023 [facility] REASON FOR VISIT (unrecogniz ed section and content) Reason Comments Follow-up EST PT IP NI 2-3 WE EK FU SCHED W/PT Med Refill All cardiac meds Reason Onset Date Comments Med Refill 10/09/2023 Care Teams (unrecognized sec tion and content) Production Expediter Relationship Specialty Start [place] [address] [place] [address] PCP - General Internal Medicine 09/07/23 Production Expediter Relationship Specialty Start [place] [address] [place] [id number] PCP - General Internal Medicine 09/07/23 FOR RECORDS PERTAINING TO PATIENTS WHO ARE OR HAVE BEEN ENROLLED IN A CHEMICAL DEPENDENCY/SUBSTANCEABUSE PROGRAM, SOME INFORMATION MAY BE OMITTED. This clinical summary was aggregated from multiple sources. Caution should be exercised in using it in the provision of clinical care. This summary normalizes information from multiple sources, and as a consequence, information in this document may materially change the coding, format and clinical context of patient data. In addition, data may be omitted in some cases. CLINICAL DECISIONS SHOULD BE BASED ON THE PRIMARY CLINICAL RECORDS. [employer] provides no warranty or guarantee of the accuracy or completeness of information in this document.
--- NOTE | 2023-11-03 08:41 | XR_ITS ---
The [address] [address] Patient Name: DEMETRIUS NIELSON MRN: [id number] date: 1955 Sex: M Assigned Patient Location: [facility] Current Patient Location: [facility] Accession/Order Number: [id number] Exam Date: 11/03/2023 08:47 Report Date: 11/03/2023 11:59 At the request of: BUDDY BRUNSON Procedure: XR cervical spine w flex/ext EXAMINATION: XR cervical spine w flex/ext HISTORY: Cervical Spondylosis M47.812 ; acute left neck pain, chest pain COMPARISON: No relevant comparison available. FINDINGS: BONES: Osseous fusion of C4 and C5 vertebral bodies. Anterior mechanical fusion C5-6.; No appreciable hardware fracture loosening. No bone fracture or significant listhesis. Multilevel mild degenerative facet arthropathy. DISC SPACES: Complete loss at C4-5, but this may be due to osseous fusion. Marked narrowing due to degenerative changes at C5-6. Mild narrowing C6-7. PARASPINOUS: Negative. No paraspinous abnormality is seen. OTHER: Negative. XR/XR cervical spine w flex/ext IMPRESSION: 1. No appreciable acute abnormality. 2. Degenerative changes and surgical changes as detailed above. No prior studies for comparison. Electronically authenticated by: SULEMA VO Date: 11/03/2023 11:59
--- NOTE | 2023-11-03 08:41 | XR_ITS ---
[address] [address] Patient Name: DEMETRIUS NIELSON MRN: [id number] date: 1955 Sex: M Assigned Patient Location: [facility] Current Patient Location: [facility] Accession/Order Number: [id number] Exam Date: 11/03/2023 08:47 Report Date: 11/03/2023 09:10 At the request of: BUDDY BRUNSON Procedure: XR shoulder LT min 2V EXAM: Left shoulder. HISTORY: . Primary Osteoarthtis . COMPARISON: None. TECHNIQUE: 3 views FINDINGS: No fracture or dislocation of left shoulder is noted. Early arthritic changes of the left AC joint are noted. Surrounding soft tissues are unremarkable. XR/XR shoulder LT min 2V IMPRESSION: 1 no acute bony abnormality of the left shoulder. 2. Early arthritic changes of the left AC joint. Electronically authenticated by: ELIJAH HUNTRE Date: 11/03/2023 09:10
== END 2023-11-03 08:34 | disposition home or self-care (01) ==
LOC: RAD 08:35
PROVIDERS: PCP Internal Medicine; Visit Provider Internal Medicine
DX: M19.012 Primary osteoarthritis, left shoulder (principal); M47.812 Spondylosis without myelopathy or radiculopathy, cervical region
CPT/HCPCS: 72052; 73030